=== PATIENT | female | born 1970 | race Caucasian/White ===

== ENCOUNTER 2017-07-02 12:53 | Inpatient (IN) | payer BC ==
[~2017-07-02] VITALS: Ht 162.6 cm; Wt 117.9 kg
[2017-07-02] MEDS ORDERED: DIAZEPAM5 MG PO (13:11)
[2017-07-02] MEDS ORDERED: LEVOTHYROXINE125 MCG PO (13:12)
[2017-07-02] MEDS ORDERED: CITALOPRAM HBR40 MG PO (13:12)
[2017-07-02] MEDS ORDERED: ESTRADIOL1 EAC6 TD (13:12)
[2017-07-02] MEDS ORDERED: ZOLPIDEM TARTRA10 MG PO (13:13)
--- OUTSIDE RECORDS SUMMARY | 2017-07-02 13:47 | XMS ---
Demographics + + + | Address | [address] | | | [place] [address] | + + + | Preferred Language | Unknown | + + + | Marital Status | Unknown | + + + | Mandaen Affiliation | Unknown | + + + | Race | Unknown | + + + | Ethnic Group | Unknown | + + + Author + + + | Author | [facility] | + + + | Organization | [facility] | + + + | Address | [address] | | | [place] [address] | + + + | Phone | [phone] [phone] | + + + Care Team Providers + + + + | Care Health Inspector Food Name | Role | Phone | + + + + Unavailable | Unavailable | + + + + PROBLEMS + + + + + + + + | Type | Condition | ICD9-CM | [id number] | Onset | Condition | SNOMED | | | | Code | Code | Dates | Status | Code | + + + + + + + + | Problem | Allergic | | J30.9 | | Active | [id number] | | | rhinitis | | | | | | + + + + + + + + | Problem | Anxiety | | F41.9 | | Active | [id number] | | | and | | | | | | | | depression | | | | | | + + + + + + + + | Problem | Stress and | F43.29 | | | Active | [id number] | | | | | | | | | | | adjustment | | | | | | | | reaction | | | | | | + + + + + + + + | Assessment | Anxiety | | F41.9 | 11 November, | Active | [id number] | | | and | | | 2016 | | | | | depression | | | | | | + + + + + + + + ALLERGIES Unknown Allergies SOCIAL HISTORY No smoking Hx information available PLAN OF CARE VITAL SIGNS MEDICATIONS + + + + + + + +--------+ | Medicati | Instruct | Dosage | Frequenc | Start | End Date | Duration | Status | | on | ions | | y | Date | | | | + + + + + + + +--------+ | Albutero | Inhalati | 2 puffs | 4h | 21 Sep, | | 7 days | Active | | l | on every | as | | 2016 | | | | | Sulfate | 4 hrs | needed | | | | | | | HFA 108 | | | | | | | | | (90 | | | | | | | | | Base) | | | | | | | | | MCG/ACT | | | | | | | | + + + + + + + +--------+ | Celexa | Orally | 1.5 | 24h | 23 Feb, | | 30 | Active | | 40 mg | Once a | tablet | | 2017 | | day(s) | | | | day | | | | | | | + + + + + + + +--------+ | Synthroi | Orally | 1 tablet | 12h | | | | Active | | d 112 | twice a | | | | | | | | MCG | day | | | | | | | + + + + + + + +--------+ | Pseudoep | Orally | take 1 | | | | 30 | Active | | hedrine | prn | to 2 | | | | day(s) | | | HCl 30 | every 6 | tablets | | | | | | | mg | hours | by mouth | | | | | | | | | every 6 | | | | | | | | | hours | | | | | | | | | if | | | | | | | | | needed | | | | | | + + + + + + + +--------+ | Diazepam | Orally | 1 tablet | | | | 30 | Active | | 5 MG | one time | as | | | | day(s) | | | | daily | needed | | | | | | | | PRN | | | | | | | + + + + + + + +--------+ | Minivell | Transder | 1 patch | | 19 Ravi, | | 30 | Active | | e 0.05 | mal Two | to skin | | 2016 | | day(s) | | | MG/24HR | times a | | | | | | | | | Week | | | | | | | + + + + + + + +--------+ | Zolpidem | Orally | 1 tablet | 24h | | | | Active | | | Once a | at | | | | | | | Tartrate | day | bedtime | | | | | | | 10 MG | | as | | | | | | | | | needed | | | | | | + + + + + + + +--------+ RESULTS No Results PROCEDURES No Known procedures IMMUNIZATIONS No Known Immunizations"
--- OUTSIDE RECORDS SUMMARY | 2017-07-02 13:47 | XMS ---
Demographics + + + | Address | [address] | | | [place] [address] | + + + | Preferred Language | Unknown | + + + | Marital Status | Unknown | + + + | Episcopal Affiliation | Unknown | + + + | Race | Unknown | + + + | Ethnic Group | Unknown | + + + Author + + + | Author | [facility] | + + + | Organization | [facility] | + + + | Address | [address] | | | [place] [address] | + + + | Phone | [phone] EXT [phone] | + + + Care Team Providers + + + + | Care Electrolog Operator Name | Role | Phone | + + + + Unavailable | Unavailable | + + + + PROBLEMS +---------+ + + +--------+ + + | Type | Condition | ICD9-CM | [id number] | Onset | Condition | SNOMED | | | | Code | Code | Dates | Status | Code | +---------+ + + +--------+ + + | Problem | Allergic | | J30.9 | | Active | [id number] | | | rhinitis | | | | | | +---------+ + + +--------+ + + | Problem | Anxiety | | F41.9 | | Active | [id number] | | | and | | | | | | | | depression | | | | | | +---------+ + + +--------+ + + | Problem | Stress and | F43.29 | | | Active | [id number] | | | | | | | | | | | adjustment | | | | | | | | reaction | | | | | | +---------+ + + +--------+ + + ALLERGIES Unknown Allergies SOCIAL HISTORY [...] | Transder | 1 patch | | Jan, | | 30 | Active | | e 0.05 | mal Two | to skin | | 2015 | | day(s) | | | MG/24HR [...]
--- OUTSIDE RECORDS SUMMARY | 2017-07-02 13:47 | XMS ---
Demographics + + + | Address | [address] | | | [place] [address] | + + + | Preferred Language | Unknown | + + + | Marital Status | Unknown | + + + | Zoroastrianism Affiliation | Unknown | + + + | Race | Unknown | + + + | Ethnic Group | Unknown | + + + Author + + + | Author | [facility] | + + + | Organization | [facility] | + + + | Address | [address] | | | [place] [address] | + + + | Phone | | + + + Care Team Providers + + + + | Care Exhibitions Curator Name | Role | Phone | + + + + Unavailable | Unavailable | + + + + PROBLEMS +---------+ + + +--------+ + + | Type | Condition | ICD9-CM | [id number] | Onset | Condition | SNOMED | | | | Code | Code | Dates | Status | Code | +---------+ + + +--------+ + + | Problem | Acute | J30.9 | | | Active | [id number] | | | allergic | | | | | | | | rhinitis | | | | | | +---------+ + + +--------+ + + | Problem | Acute | J45.901 | | | Active | 100648147 | | | asthma | | | | | | | | exacerbati | | | | | | | | on | | | | | | +---------+ + + +--------+ + + | Problem | Anxiety | | F41.9 | | Active | 242101770 | | | and | | | | | | | | depression | | | | | | +---------+ + + +--------+ + + | Problem | Stress and | F43.29 | | | Active | [id number] | | | | | | | | | | | adjustment | | | | | | | | reaction | | | | | | +---------+ + + +--------+ + + | Problem | Viral | | B34.9 | | Active | 30400366 | | | illness | | | | | | +---------+ + + +--------+ + + | Problem | Allergic | | J30.9 | | Active | 77521478 | | | rhinitis | | | | | | +---------+ + + +--------+ + + ALLERGIES + + + + +--------+ | Substance | Reaction | Event Type | Date | Status | + + + + +--------+ | morphine | rash | Non Drug | Dec, | Active | | | | Allergy | | | + + + + +--------+ SOCIAL HISTORY No smoking Hx information available PLAN OF CARE + +---------+ | Activity | Details | + +---------+ +---+ | | +---+ + + + | Follow Up | 2 - 3 Days. 2 - 3 Days, prn, follow up | | | this week with your primary care provider | | | Reason:null | + + + VITAL SIGNS + + + + | Height | 5 ft 4 in in | 2016-12-24 | + + + + | Weight | 255.8 lbs | 2016-12-24 | + + + + | BMI | 43.90 kg/m2 | 2016-12-24 | + + + + | Temperature | 97.0 degrees Fahrenheit | 2016-12-24 | + + + + | Heart Rate | 92 /min | 2016-12-24 | + + + + | Blood pressure systolic | 131 mm Hg | 2016-12-24 | + + + + | Blood pressure diastolic | 77 mm Hg | 2016-12-24 | + + + + MEDICATIONS + + + + + + [...] + + + + + +--------+ | Ventolin | Inhalati | 2 puffs | 4h | 15 Josh, | | 30 | Active | | HFA 108 | on every | as | | 2016 | | day(s) | | | (90 | 4 hrs | needed | | [...] | Once a | tablet | | 2016 | | day(s) | | | | day | | | | | | | + + + + + + + +--------+ | Albutero | Inhalati | 3 ml | 6h | 15 Dec, | | 10 | Active | | l-Ipratr | on every | | | 2016 | | day(s) | | | opium | 6 hrs | | | | | | | | 2.5-0.5 | | | | | | | | | MG/3ML | | | | | | | | + + + + + + + +--------+ | Tessalon | Orally | 1 | 8h | 15 Josh, | 15 Jan, | 15 | Active | | Perles | Three | capsule | | 2017 | 2016 | day(s) | | | 100 mg | times a | as | | | | | | | | day | needed | | | | | [...] | on every | as | | 2017 | | | | | Sulfate | [...] + + + + + +--------+ | Levothyr | | take 1 | | | | 30 | Active | | oxine | | tablet | | | | | | | Sodium | | by mouth | | | | | | | 112 MCG | | every | | | | | | | | | morning | | | | | | + + + + + + + +--------+ RESULTS No Results PROCEDURES + + + + + | Procedure | Date Ordered | Related Diagnosis | Body Site | + + + + + | INJ TRIAMCINOLONE | December 24, 2016 | | | | ACETONIDE 10 MG | | | | + + + + + | INJECTION | December 24, 2016 | | | | ADMINISTRATION | | | | + + + + + | Est Level III | December 24, 2016 | | | | Intermediate | | | | + + + + + IMMUNIZATIONS + + + + + | Vaccine | Route | Administration Date | Status | + + + + + | Kenalog-40 | IM Intramuscular | December 24, 2016 | Administered | + + + + +"
--- OUTSIDE RECORDS SUMMARY | 2017-07-02 13:47 | XMS ---
Demographics + + + | Address | [address] | | | [place] [address] | + + + | Preferred Language | Unknown | + + + | Marital Status | Unknown | + + + | Spiritism Affiliation | Unknown | + + + | Race | Unknown | + + + | Ethnic Group | Unknown | + + + Author + + + | Author | [facility] | + + + | Organization | [facility] | + + + | Address | [address] | | | [place] [address] | + + + | Phone | [phone] EXT [phone] | + + + Care Team Providers + + + + | Care Rehabilitation Teacher Name | Role | Phone | + + + + Unavailable | Unavailable | + + + + PROBLEMS +---------+ + + +--------+ + + | Type | Condition | ICD9-CM | [id number] | Onset | Condition | SNOMED | | | | Code | Code | Dates | Status | Code | +---------+ + + +--------+ + + | Problem | Allergic | | J30.9 | | Active | [id number] | | | rhinitis | | | | | | +---------+ + + +--------+ + + | Problem | Anxiety | | F41.9 | | Active | [id number] | | | and | | | | | | | | depression | | | | | | +---------+ + + +--------+ + + | Problem | Stress and | F43.29 | | | Active | [id number] | | | | | | | | | | | adjustment | | | | | | | | reaction | | | | | | +---------+ + + +--------+ + + ALLERGIES Unknown Allergies SOCIAL HISTORY No smoking Hx information available PLAN OF CARE VITAL SIGNS MEDICATIONS Unknown Medications RESULTS No Results PROCEDURES No Known procedures IMMUNIZATIONS No Known Immunizations"
--- OUTSIDE RECORDS SUMMARY | 2017-07-02 13:47 | XMS ---
Demographics + + + | Address | [address] | | | [place] [address] | + + + | Preferred Language | Unknown | + + + | Marital Status | Unknown | + + + | Restoration Affiliation | Unknown | + + + | Race | Unknown | + + + | Ethnic Group | Unknown | + + + Author + + + | Author | [facility] | + + + | Organization | [facility] | + + + | Address | [address] | | | [place] [address] | + + + | Phone | | + + + Care Team Providers + + + + | Care Youth Advocate Name | Role | Phone | + + + + Unavailable | Unavailable | + + + + PROBLEMS +---------+ + + +--------+ + + | Type | Condition | ICD9-CM | [id number] | Onset | Condition | SNOMED | | | | Code | Code | Dates | Status | Code | +---------+ + + +--------+ + + | Problem | Acute | J30.9 | | | Active | [id number] | | | allergic | | | | | | | | rhinitis | | | | | | +---------+ + + +--------+ + + | Problem | Acute | J45.901 | | | Active | [id number] | | | asthma | | | | | | | | exacerbati | | | | | | | | on | | | | | | +---------+ + + +--------+ + + | Problem | Anxiety | | F41.9 | | Active | [id number] | | | and | | | | | | | | depression | | | | | | +---------+ + + +--------+ + + | Problem | Stress and | F43.29 | | | Active | 915369629 | | | | | | | | | | | adjustment | | | | | | | | reaction | | | | | | +---------+ + + +--------+ + + | Problem | Viral | | B34.9 | | Active | 05995109 | | | illness | | | | | | +---------+ + + +--------+ + + | Problem | Allergic | | J30.9 | | Active | 56147796 | | | rhinitis | | | [...] + + + | Follow Up | establish care with a primary provider | | | Reason:null | + + + VITAL SIGNS + + + + | Height | 5 ft 4 in in | 2016-12-30 | + + + + | Weight | 250.6 lbs | 2016-12-30 | + + + + | BMI | 43.01 kg/m2 | 2016-12-30 | + + + + | Temperature | 98.1 degrees Fahrenheit | 2016-12-30 | + + + + | Heart Rate | 75 /min | 2016-12-30 | + + + + | Blood pressure systolic | 131 mm Hg | 2016-12-30 | + + + + | Blood pressure diastolic | 65 mm Hg | 2016-12-30 | + + + + MEDICATIONS + [...] Inhalati | 3 ml | 6h | Dec, | | 10 | Active | | l-Ipratr | on every | | | 2016 | | day(s) | | | opium | 6 hrs | | | | | | | | 2.5-0.5 | | | | | | | | | MG/3ML | | | | | | | | + + + + + + + +--------+ | Amoxicil | Orally | 1 tablet | 12h | 21 Dec, | 1 Ravi, | 10 | Active | | james-Pot | every 12 | | | 2016 | 2016 | day(s) | | | Clavulan | hrs | | | | | | | | ate | | | | | | | | | 875-125 | | | | | | | | | MG | | | | | | | [...] Inhalati | 2 puffs | 4h | Sep, | | 7 days | Active [...] Perles | Three | capsule | | 2016 | 2016 | day(s) | | | 100 mg | times a | as | | | | | | | | day | needed | | | | | | + + + + + + + +--------+ | Medrol 4 | Orally | Take 6 | | 21 Dec, | 27 Josh, | 6 Days | Active | | mg | qdaily | po | | 2017 | 2016 | | | | | | qstat, | | | | | | | | | then 5 | | | | | | | | | tabs po | | | | | | | | | qdaily x | | | | | | | | | 1 day, | | | | | | | | | then | | | | | | | | | continue | | | | | | | | | | | | | | | | | | reducing | | | | | | | | | by 1 | | | | | | | | | tab | | | | | | | | | daily | | | | | | | | | until | | | | | | | | | co,mplet | | | | | | + + + + + + + +--------+ RESULTS + +--------+------+ + | Name | Result | Date | Reference Range | + +--------+------+ + | Cochran, Qual (IH) | | | | + +--------+------+ + PROCEDURES + + + + + | Procedure | Date Ordered | Related Diagnosis | Body Site | + + + + + | LAB MONO SCREENING | December 30, 2016 | | | + + + + + | Est Level III | December 30, 2016 | | | | Intermediate | | | | + + + + + IMMUNIZATIONS No Known Immunizations"
--- OUTSIDE RECORDS SUMMARY | 2017-07-02 13:47 | XMS ---
Demographics + + + | Address | [address] | | | [place] [address] | + + + | Preferred Language | Unknown | + + + | Marital Status | Unknown | + + + | Judaism Affiliation | Unknown | + + + | Race | Unknown | + + + | Ethnic Group | Unknown | + + + Author + + + | Author | [facility] | + + + | Organization | [facility] | + + + | Address | [address] | | | [place] [address] | + + + | Phone | [phone] EXT [phone] | + + + Care Team Providers + + + + | Care Urban Planning Professor Name | Role | Phone | + + + + Unavailable | Unavailable | + + + + PROBLEMS + + + + + + + + | Type | Condition | ICD9-CM | [id number] | Onset | Condition | SNOMED | | | | Code | Code | Dates | Status | Code | + + + + + + + + | Problem | Allergic | | J30.9 | | Active | [id number] | | | rhinitis | | | | | | + + + + + + + + | Problem | Anxiety | | F41.9 | | Active | [id number] | | | and | | | | | | | | depression | | | | | | + + + + + + + + | Assessment | Jaw pain | | R68.84 | 14 Oct, | Active | [id number] | | | | | | 2017 | | | + + + + + + + + | Problem | Stress and | F43.29 | | | Active | [id number] | | | | | | | | | | | adjustment | | | | | | | | reaction | | | | | | + + + + + + + + | Assessment | Allergic | | J30.9 | 14 Oct, | Active | [id number] | | | rhinitis | | | 2016 | | | + + + + + + + + ALLERGIES + + + + +--------+ | Substance | Reaction | Event Type | Date | Status | + + + + +--------+ | morphine | rash | Non Drug | Oct, | Active | | | | Allergy | | | + + + + +--------+ SOCIAL HISTORY No smoking Hx information available PLAN OF CARE VITAL SIGNS + + + + | Height | 5 ft 4 in in | 2016-10-23 | + + + + | Weight | 249.0 lbs | 2016-10-23 | + + + + | BMI | 42.74 kg/m2 | 2016-10-23 | + + + + | Heart Rate | 88 /min | 2016-10-23 | + + + + | Blood pressure systolic | 118 mm Hg | 2016-10-23 | + + + + | Blood pressure diastolic | 75 mm Hg | 2016-10-23 | + + + + MEDICATIONS + + + + + + + +--------+ | Medicati | Instruct | Dosage | Frequenc | Start | End Date | Duration | Status | | on | ions | | y | Date | | | | + + + + + + + +--------+ | Kenalog | | 1.6 | | | | | Active | | 40 MG/ML | | drops | | | | | | + [...] + +--------+ | Diazepam | Orally | | | | | | Active | | 5 MG | prn | | | | | | | [...] + + + + + +--------+ | Meclizin | Orally | 1 tablet | 24h | | | | Active | | e HCl 25 | Once a | as | | | | | | | MG | day | needed | | | | | | + + + + + + + +--------+ | Minivell | Transder | 1 patch | | 19 Jan, | | 30 | Active | | e 0.05 | mal Two | to skin | | 2016 | | day(s) | | | MG/24HR | times a | | | | | | | | | Week | | | | | | | + + + + + + + +--------+ | Celexa | Orally | 1.5 | 24h | Aug, | | 30 | Active | | [...] + + | Est Level III | October 23, 2016 | | | | Intermediate | | | | + + + + + | DSCHRG MED/CURRENT | October 23, 2016 | | | | MED MERGE | | | | + + + + + | TOBACCO NON-USER | October 23, 2016 | | | + + + + + | DOC MEDS VERIFIED | October 23, 2016 | | | | W/PT OR RE | | | | + + + + + IMMUNIZATIONS No Known Immunizations"
--- NOTE | 2017-07-02 19:07 | EKG ---
[facility] [address] [facility] [place], [place] [address] Signed Normal sinus rhythm ST \T\ T wave abnormality, consider inferior ischemia Prolonged QT Abnormal ECG No previous ECGs available Confirmed by NEVAEH CARDENAS MD ([id number]) on 07/02/2017 7:07:13 PM Electronically Signed By: NEVAEH CARDENAS MD 07/02/17 [id number] PATIENT NAME: KRISTINE HARGROVE Electrocardiogram DATE OF : 66 PHYSICIAN: NEVAEH CARDENAS MD REPORT #: [id number] REPORT IS CONFIDENTIAL AND NOT TO BE RELEASED WITHOUT AUTHORIZATION
== END 2017-07-03 11:20 | disposition home or self-care (01) | DRG 918 ==
LOC: ED 12:53 → CCU 15:25
PROVIDERS: ADMIT Internal Medicine
DX: T42.4X2A Poisoning by benzodiazepines, intentional self-harm, initial encounter (principal); F32.9 Major depressive disorder, single episode, unspecified; E03.9 Hypothyroidism, unspecified; F41.9 Anxiety disorder, unspecified; G47.00 Insomnia, unspecified
CPT/HCPCS: 36415; 80048; 80053; 80176; 84443; 85025; 90674; 93005; 93010; 96360; 99284; G0008; G0480; J7030

== ENCOUNTER 2018-10-06 08:04 | Day surgery (SDC) | payer BC ==
[~2018-10-06] VITALS: Ht 162.6 cm; Wt 118.4 kg
--- NOTE | ~2018-10-06 | OR ---
[facility] [address] [place], [place] [address] Draft DATE OF OPERATION: 10/06/2018 SURGEON: Nia Ruby MD PREOPERATIVE DIAGNOSES: 1. Internal and external hemorrhoids. 2. Rectal bleeding. POSTOPERATIVE DIAGNOSES: 1. 4 mm polyp at 60 cm. 2. 4 mm polyp at 10 cm. 3. 10-12 mm sessile polyp at 14 cm (left) and (tattoo). 4. Moderate external hemorrhoids. 5. Mild pruritus ani. PROCEDURES PERFORMED: 1. Colonoscopy with hot biopsy, snare polypectomy, and injection of tattoo. 2. Rigid proctoscopy. ESTIMATED BLOOD LOSS: None. INDICATIONS: Jovani is a 48-year-old female, asked to see me for colonoscopy. She has had a lot of trouble with bleeding hemorrhoids. She told me in the office that I performed her 's colonoscopy last year. However, she was still very anxious about the whole idea. She told me there is no family history of colon cancer or polyps. I gave her a brochure on colonoscopy and we looked at that together in detail. She understands the nature of that test along with the risks including, but not limited to gas bloating, crampy abdominal pain, bleeding, perforation, requiring surgery, and missed diagnosis. She had expressed understanding and wished to proceed. PROCEDURE NOTE: Jovani was brought into our endoscopy suite and placed in a left lateral decubitus position. She was obviously very anxious about having the procedure. We ended up giving her 10 mg of Versed and 200 mcg of fentanyl. She was still talking to us and we could not advance the scope through the sigmoid colon because it was uncomfortable. Consequently, we asked an anesthesia provider come and we had a propofol IV and was able to relax her and sedate her sufficient enough that we could easily advance the scope right up into the cecum itself. Her prep was quite good. The scope was then slowly PATIENT NAME: JOVANI HARGROVE OPERATIVE REPORT DATE OF : 66 REPORT #: [id number] PHYSICIAN: NIA RUBY MD PCP: KINGA ROSE REPORT IS CONFIDENTIAL AND NOT TO BE RELEASED WITHOUT AUTHORIZATION [facility] [address] [place], [place] [address] Draft withdrawn. Her prep was good. We took pictures throughout for photodocumentation. We could easily see the appendiceal orifice and the ileocecal valve. The 2 small polyps were easily removed with hot biopsy forceps. We used a combination of the hot biopsy forceps and our snare to remove the polyp at 14 cm. It is on the back of a fold. Consequently, we left a tattoo on the front of that fold. We then retroflexed the scope and we did not see any obvious internal hemorrhoids. She did have moderate external hemorrhoids with some mild pruritus ani. We then inserted a rigid proctoscope and we found her tattoo at 14 cm on her left side. It appears to be in the rectum. After this, the gas was allowed to escape through the rigid proctoscope and the rigid proctoscope was then removed. Overall, Jovani tolerated the procedure quite well. RECOMMENDATIONS: I will see Jovani back in my office in 7 to 14 days to review her results. I suspect we need to look at that area at 14 cm in about 12 months or so. MD RCIHY Montalvo/TRACYL /[id number] cc: JULISSA Delaney MD Copies: KINGA ROSE ANDREW L MD ~ PATIENT NAME: JOVANI HARGROVE OPERATIVE REPORT DATE OF : 66 REPORT #: [id number] PHYSICIAN: NIA RUBY MD PCP: KINGA ROSE REPORT IS CONFIDENTIAL AND NOT TO BE RELEASED WITHOUT AUTHORIZATION
[~2018-10-06 08:04] MED LIST: CITALOPRAM HBR40 MG PO; CYMBALTA30 MG PO; DIAZEPAM5 MG PO; ESTRADIOL1 EAC6 TD; GABAPENTIN300 MG PO; LEVOTHYROXINE125 MCG PO; WELLBUTRIN XL300 MG PO; ZOLPIDEM TARTRA10 MG PO
--- NOTE | 2018-10-06 11:04 | NUR ---
10/06/18 1104 [address] 1050 PATIENT ARRIVES TO PATIENT SLEEPING, DIFFICULT TO ARROUSE. SNORING RESP, NC AT 4 LITERS. 1055 PATIENT AWAKENS WITH VERBAL STIMULI, AWAKE ON/OFF. WHEN AWAKE C/O "SPASMS" IN ABD. ENCOURAGED PATIENT TO PASS GAS. RESP EVEN AND UNLABORED, ROOM AIR SATS 95. PATIENT REPOSITIONS SELF TO BACK. 1100 PATIENT CONTINUES TO C/O ABD CRAMPING. RESPOSITIONS SELF TO POSITION OF COMFORT. RESP EVEN AND UNLABORED, ROOM AIR SATS >95%. DR RUBY AWARE OF PAIN.
== END 2018-10-06 12:15 | disposition home or self-care (01) ==
LOC: OPS 08:04 → DS 08:04 → OPS 09:45
PROVIDERS: Colon & Rectal Surgery
PROC: 3E0H8GC Introduction of Other Therapeutic Substance into Lower GI, Via Natural or Artificial Opening Endoscopic (ICD-10-PCS; 2018-10-06)
PROC: 0DBE8ZX Excision of Large Intestine, Via Natural or Artificial Opening Endoscopic, Diagnostic (ICD-10-PCS; principal; 2018-10-06 09:45)
DX: D12.6 Benign neoplasm of colon, unspecified (principal); K63.5 Polyp of colon; K64.4 Residual hemorrhoidal skin tags; L29.0 Pruritus ani; Z88.5 Allergy status to narcotic agent; Z79.899 Other long term (current) drug therapy
CPT/HCPCS: 99153; G0500; J2250; J2704; J3010; J7120

== ENCOUNTER 2020-07-19 19:22 | Emergency (ER) | payer BC ==
[~2020-07-19] VITALS: Ht 162.6 cm; Wt 108.9 kg
== END 2020-07-19 20:21 | disposition home or self-care (01) ==
LOC: ED 19:22
DX: R05 Cough (principal); E03.9 Hypothyroidism, unspecified; Z88.5 Allergy status to narcotic agent; Z79.899 Other long term (current) drug therapy
CPT/HCPCS: 71046; 99283-25